=== PATIENT | male | born 1945 | race Caucasian/White ===

== ENCOUNTER 2017-07-15 08:00 | Outpatient (CLI) | payer MEDICARE, OTHER ==
[2017-07-15 14:07] LABS: BASOPHILS # (AUTO) 0.1 10^3/uL (0.0-0.1); EOSINOPHILS # (AUTO) 0.2 10^3/uL (0.0-0.7); EOSINOPHILS % (AUTO) 3.2 %; HCT - HEMATOCRIT 42.2 % (42.0-52.0); HGB - HEMOGLOBIN 14.2 g/dL (14.0-18.0); LYMPHOCYTES # (AUTO) 1.7 10^3/uL (1.5-3.5); LYMPHOCYTES % (AUTO) 31.6 %; MEAN CORPUSCULAR HEMOGLOBIN 30.7 pg (27.0-31.0); MEAN CORPUSCULAR HGB CONC 33.6 g/dL (32.0-36.0); MEAN CORPUSCULAR VOLUME 91.5 fL (80.0-94.0); MEAN PLATELET VOLUME 9.8 fL (7.4-11.4); MONOCYTES # (AUTO) 0.4 10^3/uL (0.0-1.0); MONOCYTES % (AUTO) 7.5 %; NEUTROPHILS % (AUTO) 56.7 %; RED BLOOD COUNT 4.61 10^6/uL (4.70-6.10); RED CELL DISTRIBUTION WIDTH 13.9 % (12.0-15.0); UNCORRECTED WHITE BLOOD COUNT 5.3 x10^3/uL; WHITE BLOOD COUNT 5.3 x10^3/uL (4.8-10.8)
[2017-07-15 14:30] LABS: ALBUMIN/GLOBULIN RATIO 1.8 (1.0-2.2); BILIRUBIN,TOTAL 1.1 mg/dL (0.2-1.0); BUN - BLOOD UREA NITROGEN 16 mg/dL (6-20); CALCIUM 9.2 mg/dL (8.5-10.3); CARBON DIOXIDE - CO2 25 mmol/L (21-32); CHLORIDE 107 mmol/L (101-111); CHOL/HDL RATIO 2.8 (<5.0); CHOLESTEROL 196 mg/dL; CREATININE 0.8 mg/dL (0.6-1.2); GFR - MDRD 95 (>89); GLUCOSE 99 mg/dL (70-100); HDL CHOLESTEROL 69 mg/dL; LDL/HDL RATIO 1.5 (<3.6); POTASSIUM 4.1 mmol/L (3.5-5.0); SODIUM 138 mmol/L (135-145); TOTAL PROTEIN 6.9 g/dL (6.7-8.2); TRIGLYCERIDES 106 mg/dL; VLDL CHOLESTEROL 21 mg/dL
== END 2017-07-15 08:01 | disposition home or self-care (01) ==
LOC: LAB.WCP 08:00
PROVIDERS: ATTEND Family Medicine
DX: I10 Essential (primary) hypertension (principal); Z12.5 Encounter for screening for malignant neoplasm of prostate; E78.5 Hyperlipidemia, unspecified
CPT/HCPCS: 36415; 80053; 80061; 85025; G0103; 84153; 84154

== ENCOUNTER 2017-09-06 14:32 | Outpatient (CLI) | payer MEDICARE, OTHER ==
--- NOTE | 2017-09-08 18:20 | MRI Report ---
EXAM: LEFT SHOULDER MRI WITHOUT CONTRAST EXAM DATE: 09/06/2017 03:08 PM. CLINICAL HISTORY: Osteoarthritis, left shoulder. COMPARISON: None. TECHNIQUE: Multiplanar, multisequence T1-weighted and fluid-sensitive sequences of the shoulder witho ut contrast. Other: None. FINDINGS: Acromioclavicular Region: The acromion is type II. Mild degenerative changes acromioclavicular joint. Distal inferior clavicle 3 mm spur. The coracoacromial and coracoclavicular ligaments are intact. Sm all fluid collection subacromial/subdeltoid bursa. Glenohumeral Region: No subluxation. No effusion or loose bodies. The articular cartilage is unremark able. The glenohumeral ligaments and joint capsule are unremarkable. Bone Marrow: No fracture, marrow edema or bone lesions. Labrum: The labrum is unremarkable on this nonarthrographic study. Musculature/Rotator Cuff: Complete tear distal anterior supraspinatus 1.7 cm in transverse dimension and 1.8 cm in AP dimension. Subscapularis and supraspinatus tendinosis. Fluid signal partial tear inf raspinatus musculotendinous junction 4.4 mm in transverse dimension and 1.3 cm in length. Mild atroph y supraspinatus muscle. Negative for infraspinatus or subscapularis muscle atrophy. Teres minor muscl e and tendon are unremarkable. Biceps Tendon: The long head of the biceps tendon and biceps gisele are intact. Other: The subcutaneous tissues are unremarkable. IMPRESSION: 1. Complete tear distal anterior supraspinous tendon 1.7 cm in transverse dimension and 1.8 cm in AP dimension. 2. Fluid signal musculotendinous junction interstitial tear infraspinatus tendon 4.4 mm in transverse dimension and 1.3 cm in length. 3. Mild arthrosis acromioclavicular joint. [facility] MUSCULOSKELETAL RADIOLOGY SECTION Referring Provider Line: [phone] SITE ID: [id number]
== END 2017-09-06 14:33 | disposition home or self-care (01) ==
LOC: DI 14:32
PROVIDERS: ATTEND Family Medicine
DX: M19.012 Primary osteoarthritis, left shoulder (principal); M75.102 Unspecified rotator cuff tear or rupture of left shoulder, not specified as traumatic

== ENCOUNTER 2017-09-29 10:21 | Emergency (ER) | payer MEDICARE, OTHER ==
--- NOTE | 2017-09-29 12:07 | XRAY Report ---
EXAM: LEFT HAND RADIOGRAPHY EXAM DATE: 09/29/2017 11:27 AM. CLINICAL HISTORY: Laceration to left middle and pointer fingers. COMPARISON: None. TECHNIQUE: 3 views. FINDINGS: Bones: Suspect subtle fracture ulnar aspect of the third distal tuft in the area of focal overlying s oft tissue defect. No other fracture or bone destructive process. Joints: No subluxation. Mild osteoarthritis first CMC complex, first IP, and DIP joints of the digits . Soft Tissues: Soft tissue defect distal middle and index fingers. No radiopaque foreign body. IMPRESSION: 1. Subtle fracture third distal tuft in the area of focal soft tissue defect. 2. Small laceration distal index finger. 3. No other acute bony abnormality. 4. Incidental mild osteoarthritis. [facility] Referring Provider Line: [phone] SITE ID: [id number]
--- NOTE | 2017-09-29 12:07 | XRAY Preliminary Report ---
Exam: XR HAND 3 VIEW LT IMPRESSION: 1. Subtle fracture third distal tuft in the area of focal soft tissue defect. 2. Small laceration distal index finger. 3. No other acute bony abnormality. 4. Incidental mild osteoarthritis. [facility] SITE ID: [id number]
[2017-09-29 12:31] VITALS: BP 157/76
--- NOTE | 2017-09-29 13:24 | ED Physician Documentation ---
PD HPI UPPER EXT INJURY - Stated complaint Stated Complaint: LEFT SIDE 2 FINGERS LAC - Chief complaint Chief Complaint: Laceration - History obtained from History obtained from: Patient - History of Present Illness Location: Right, Finger (2nd and 3rd digits.) Type of injury: Laceration Where injury occurred: Home Timing - onset: Today Timing - duration: Hours Timing - details: Abrupt onset, Still present Improved by: Rest Worsened by: Moving, Palpating Associated symptoms: No: Weakness, Numbness, Tingling Similar symptoms before: Has not had sx before Recently seen: Not recently seen - Additonal information Additional information: 71-year-old male was pushing a piece of wood through his 5 hp table saw when he reached to grab a push igor and accidentally clipped the tips of 2 fingers on his right hand he was able to control bleeding with direct pressure and comes in now for evaluation. Review of Systems Constitutional: denies: Fever Eyes: denies: Decreased vision Ears: denies: Ear pain Nose: denies: Congestion Throat: denies: Sore throat Cardiac: denies: Chest pain / pressure Respiratory: denies: Dyspnea, Cough GI: denies: Abdominal Pain, Nausea, Vomiting : denies: Dysuria, Frequency Skin: reports: Laceration (s). denies: Rash Musculoskeletal: denies: Neck pain, Back pain PD PAST MEDICAL HISTORY - Past Medical History Past Medical History: Yes Cardiovascular: Hypertension Respiratory: None Endocrine/Autoimmune: None GI: Colon polyps : None HEENT: None Psych: None Musculoskeletal: None Derm: None - Past Surgical History Past Surgical History: Yes General: Cholecystectomy - Present Medications Home Medications: Ambulatory Orders Medication Instructions Recorded Confirmed Cholestyramine [Questran] 09/29/17 Sildenafil Citrate [Viagra] 09/29/17 Tamsulosin [Flomax] 09/29/17 - Allergies Allergies/Adverse Reactions: Allergies Allergy/AdvReac Type Severity Reaction Status Date / Time No Known Drug Allergies Allergy Verified 02/13/15 08:41 - Social History Does the pt smoke?: Yes Smoking Status: Former smoker Does the pt drink ETOH?: Yes ETOH Use: Wine Does the pt have substance abuse?: No - Immunizations Immunizations are current?: Yes - POLST Patient has POLST: Yes PD ED PE NORMAL - Vitals Vital signs reviewed: Yes (hypertensive) - General General: Alert and oriented X 3, No acute distress, Well developed/nourished - HEENT HEENT: Atraumatic, PERRL, EOMI - Respiratory Respiratory: No respiratory distress - Derm Derm: Normal color, Warm and dry, No rash - Extremities Extremities: No deformity, No edema, Other (There are skin avulsions to the radial surface of the distal phlange of the right 2nd and 3rd digits. The bleeding is controlled with direct pressure and there is no suturable laceration. The bone is not involved and the nail is not involved. ) - Neuro Neuro: Alert and oriented X 3, snow ranger 2-12 intact, No motor deficit, No sensory deficit, Normal speech Eye Opening: Spontaneous Motor: Obeys Commands Verbal: Oriented GCS Score: 15 - Psych Psych: Normal mood, Normal affect Results - Vitals Vitals: Vital Signs - 24 hr 09/29/17 09/29/17 10:54 12:27 Temperature 37.5 C Heart Rate 93 86 Respiratory 18 16 Rate Blood Pressure 179/76 H 157/76 H O2 Saturation 98 98 Oxygen O2 Source Room air - Rads (name of study) fingers Radiology: Prelim report reviewed (Impression: 1. Subtle fracture third distal tuft in the area of focal soft tissue defect. 2. Small laceration distal index finger. 3. No other acute bony abnormality. 4. Incidental mild osteoarthritis.) , EMP read indepedently, See rad report PD MEDICAL DECISION MAKING - ED course Complexity details: reviewed results, re-evaluated patient, considered differential, d/w patient ED course: 71-year-old male with deep skin avulsions to the second and third digits on the right hand is treated conservatively with Gelfoam and dressing. After cleaning. I do not believe the bone is involved in this laceration. Departure - Departure Disposition: 01 Home, Self Care Clinical Impression: Avulsion of skin of finger Qualifiers: Encounter type: initial encounter Qualified Code(s): S61.209A - Unspecified open wound of unspecified finger without damage to nail, initial encounter Condition: Stable Instructions: ED Avulsion Dermal Follow-Up: Jamal Turner MD [Primary Care Provider] - Discharge Date/Time: 09/29/17 15:13
== END 2017-09-29 15:13 | disposition home or self-care (01) ==
LOC: ED 10:21
DX: S61.210A Laceration without foreign body of right index finger without damage to nail, initial encounter (principal); S61.212A Laceration without foreign body of right middle finger without damage to nail, initial encounter; W31.2XXA Contact with powered woodworking and forming machines, initial encounter; I10 Essential (primary) hypertension; Z87.891 Personal history of nicotine dependence
CPT/HCPCS: 99283

== ENCOUNTER 2018-10-09 10:20 | Outpatient (CLI) | payer MEDICARE, OTHER ==
--- NOTE | 2018-10-09 13:04 | XRAY Report ---
Reason: COUGH Procedure Date: 10/09/2018 Accession Number: [id number] / [id number] Procedure: WCP - Chest 2 View X-Ray CPT Code: 16565 FULL RESULT: EXAM: CHEST RADIOGRAPHY EXAM DATE: 10/09/2018 10:39 AM. CLINICAL HISTORY: Cough. COMPARISON: None. TECHNIQUE: 2 views. FINDINGS: Lungs/Pleura: No focal opacities evident. No pleural effusion. No pneumothorax. Normal volumes. Mediastinum: The cardiomediastinal silhouette is within normal limits for size, suggestion of subtle aortic arch calcifications. Other: None. IMPRESSION: No acute cardiopulmonary abnormality is detected. [facility]
== END 2018-10-09 10:21 | disposition home or self-care (01) ==
LOC: DI.WCP 10:20
PROVIDERS: ATTEND Family Medicine
DX: R05 Cough (principal)
CPT/HCPCS: 71046

== ENCOUNTER 2019-05-05 13:12 | Outpatient (CLI) | payer MEDICARE, OTHER ==
--- NOTE | 2019-05-05 14:43 | XRAY Report ---
Reason: KNEE JOINT PAIN Procedure Date: 05/05/2019 Accession Number: [id number] / [id number] Procedure: XRN - Knee 3 View LT CPT Code: FULL RESULT: EXAM: LEFT KNEE RADIOGRAPHY. EXAM DATE: 05/05/2019 01:33 PM. CLINICAL HISTORY: Knee joint pain. COMPARISON: 11/16/2014 11:22 AM. TECHNIQUE: 3 views. FINDINGS: Bones: Normal. No fractures or bone lesions. Joints: Normal. No effusion. No subluxations. Soft Tissues: There is a mild suprapatellar joint effusion. IMPRESSION: 1. Left knee joint effusion. 2. Otherwise negative examination. [facility]
== END 2019-05-05 13:13 | disposition home or self-care (01) ==
LOC: DI.N 13:12
PROVIDERS: ATTEND Family Medicine
DX: M25.562 Pain in left knee (principal); M25.462 Effusion, left knee

== ENCOUNTER 2020-07-18 20:31 | Outpatient (CLI) | payer MEDICARE, OTHER | END 2020-07-18 20:32 | disposition home or self-care (01) | LOC: COV 20:31 | PROVIDERS: ATTEND Family Medicine | DX: R19.7 Diarrhea, unspecified (principal); R53.83 Other fatigue; R09.81 Nasal congestion; Z20.828 Contact with and (suspected) exposure to other viral communicable diseases ==

== ENCOUNTER 2021-02-27 12:09 | Outpatient (CLI) | payer MEDICARE, OTHER ==
--- NOTE | 2021-02-27 15:45 | CARDIAC PROCEDURE NOTE ---
Stress Test Report Service Date: 02/27/21 Service Time: 12:30 Ordering Provider: Lynn Plasencia PAC Indication for Test: Active man with history of hyperlipidemia, with gradually increasing exertional dyspnea and fatigue. Significant Medical History: History of BPH and erectile dysfunction. Cardiac Risk Factors: In addition to hyperlipidemia has remote tobacco smoking history (quit 1983); denies diabetes, hypertension, significant family or prior personal history of ASCVD. Type of Stress Test: ETT with Myocardial Perfusion Imaging Procedure: -Exercise Treadmill Test- After signing informed consent, the patient performed treadmill exercise using a Martinez protocol. The patient exercised for 6 minutes 46 seconds and achieved a peak heart rate of 138 bpm (95 percent predicted maximum heart rate for age), and an estimated workload of 7.7 METS. The test was terminated due to fatigue/shortness of breath. Resting heart rate: 77 Peak heart rate: 138 Normal response to exercise. Resting BP: 161/82 Peak BP: 213/46 Hypertensive BP response to exercise. Rhythm during exercise: Sinus rhythm with rare PVCs. Symptoms: Fatigue and dyspnea. EKG at rest showed normal sinus rhythm, normal in all aspects. EKG at peak stress showed sinus tachycardia with J-point depression and upsloping ST segment, not meeting diagnostic criteria for ischemia. BP decreased gradually to 139/90 at 7 minutes of recovery. ISae MD, was present throughout the entire stress test and supervised it in all aspects. Summary: 1) Average exercise tolerance as evidenced by AJAY of -10% for age. 2) Normal resting EKG. 3) Adequate level of exercise was achieved on this treadmill stress test. 4) Abnormal hypertensive BP response to exercise. 5) No ischemic changes by EKG criteria were seen at peak exercise. 6) Nuclear images showed normal LV size and systolic function, with no perfusion defects indicative of ischemia or prior infarct; see separate report for more details. CONCLUSIONS: 1. In spite of patient concern for decline in exertional capacity, his exercise tolerance was slightly above average for age. 2. No evidence of prior infarct by SPECT imaging, with no symptoms or EKG evidence of inducible ischemia. 3. This is a reassuring, low risk study.
--- NOTE | 2021-02-28 11:23 | Nuclear Medicine Report ---
PROCEDURE: Rest and exercise myocardial perfusion SPECT with gated imaging and ejection fraction INDICATIONS: 75-year-old man with dyspnea. RADIOPHARMACEUTICAL: 15.0 mCi Tc-99m Myoview IV at rest and 43.7 mCi Tc-99m Myoview IV at peak exerc ise. [id number] was performed. TECHNIQUE: Radiopharmaceutical was injected at peak stress test, and also at rest. SPECT images wer e obtained. SPECT myocardial perfusion images were displayed in short axis, horizontal long axis, an d vertical long axis views. Gated images were reviewed using Auto[employer] software. COMPARISON: None available. FINDINGS: Raw data: There is good myocardial labeling by radiotracer. No significant motion artifacts. Lung- to-heart ratio is 0.36 (normal is less than 0.46 for tetrafosmin tracer). Left ventricle function: Gated images demonstrate normal left ventricle wall thickening. No segment al wall motion abnormality. No transient ischemic dilation; TID is 0.92 (normal less than 1.30). Th e left ventricle resting end-diastolic volume is normal. Left ventricle stress ejection fraction is 64%; normal values are above 45%. Myocardial perfusion: There is normal distribution of activity in the left and right ventricular dasia cardium. No fixed or reversible perfusion defects. IMPRESSION: 1. Normal myocardial perfusion images. No perfusion defect to suggest myocardial ischemia or infarct. 2. Normal left ventricular volume and systolic function. 3. Please correlate with stress EKG result. PQRS ATTESTATIONS: Measure 322 - Is this imaging test primarily performed on a low-risk surgery patient for preoperative evaluation within 30 days preceding their low-risk non-cardiac surgery? Low-risk surgery is defined as cardiac or myocardial infarction less than 1%, including (but not limited to) endoscopic pr ocedures, superficial procedures, cataract surgery, and excisional breast surgery: Answer: No Measure 323 - Is this imaging test performed primarily for the monitoring of an asymptomatic patient who had percutaneous coronary intervention on the visit date or within 2 years of the visit date? An swer: No Measure 324 - Is this imaging test performed primarily for the initial detection and risk assessment on an asymptomatic, low coronary heart disease patient? Low CHD risk definition = clinicians should consider the maximum number of available patient factors used to estimate risk based on [place] (A TP III criteria), typically age, gender, diabetes, smoking status, and use of blood pressure medicati on, and integrate age appropriate estimates for missing elements, such as LDL or standard blood press ure. Answer: No Reviewed by: Mi Hays MD on 02/28/2021 10:21 AM [facility] Approved by: Mi Hays MD on 02/28/2021 10:21 AM [facility] Station ID: [id number]
== END 2021-02-27 12:10 | disposition home or self-care (01) ==
LOC: DI 12:09
PROVIDERS: ATTEND Physician Assistant
DX: R53.83 Other fatigue (principal); R06.09 Other forms of dyspnea; R55 Syncope and collapse; E78.5 Hyperlipidemia, unspecified; Z87.891 Personal history of nicotine dependence
CPT/HCPCS: 78452; 93017; A9500

== ENCOUNTER 2022-09-23 11:59 | Outpatient (CLI) | payer MEDICARE, OTHER ==
--- NOTE | 2022-09-23 12:32 | XRAY Report ---
PROCEDURE: Chest 2 View X-Ray INDICATIONS: COUGH TECHNIQUE: 2 views of the chest were acquired. COMPARISON: None. FINDINGS: Surgical changes and devices: None. Lungs and pleura: No pleural effusions or pneumothorax. Lungs are clear. Peribronchial cuffing. Mediastinum: Mediastinal contours are normal. Heart size is normal. Bones and chest wall: No suspicious bony abnormalities. Soft tissues appear unremarkable. IMPRESSION: Peribronchial cuffing, suggestive of infectious or inflammatory bronchitis. Reviewed by: Josh Layne on 09/23/2022 12:30 PM [facility] Approved by: Josh Layne on 09/23/2022 12:30 PM [facility] Station ID: [id number]
== END 2022-09-23 12:00 | disposition home or self-care (01) ==
LOC: DI 11:59
PROVIDERS: ATTEND Student in an Organized Health Care Education/Training Program
DX: R05.9 Cough, unspecified (principal)